=== PATIENT | male | born 1995 | race American Indian/Alaskan Native ===

== ENCOUNTER 2020-06-14 20:49 | Emergency (ER) | payer SELFPAY ==
--- NOTE | 2020-06-14 22:03 | Emergency Department Report ---
ED General Adult HPI - General Chief complaint: Fever Stated complaint: CHILLS Time Seen by Provider: 06/14/20 21:53 Source: patient Mode of arrival: Ambulatory Limitations: No Limitations - History of Present Illness Initial comments: 24-year-old -Nepalese male with no significant past medical history presents to the emergency department complaining of a myriad of vague symptoms which have been going on for the last 3 days. States that his symptoms started suddenly have been waxing and waning since the onset. Complaining of nasal congestion occasionally with occasional cough with mucus production. Also has been having some vague episodes of shortness of breath when lying down or having coughing spells. Also been having occasional aches pains and cramps and and chills. States that he has had a couple bouts of loose stools and some fever sensations but no documented fever. Radiation: non-radiation Consistency: constant Worsens with: none Associated Symptoms: malaise. denies: diaphoresis, rash, seizure, weakness Treatments Prior to Arrival: none - Related Data Previous Rx's Medication Instructions Recorded Last Taken Type Albuterol Mdi (or & Nicu Only) 1 puff IH Q4-6H PRN #1 inha 06/14/20 Unknown Rx [ProAir HFA Inhaler] Benzonatate [Tessalon Perles] 100 mg PO Q8HR #20 capsule 06/14/20 Unknown Rx Ketorolac [Toradol] 10 mg PO Q6H PRN #15 tablet 06/14/20 Unknown Rx ED Review of Systems ROS: Stated complaint: CHILLS Other details as noted in HPI Comment: All other systems reviewed and negative ED Past Medical Hx - Past Medical History Previous Medical History?: Yes Additional medical history: sickle cell trait - Surgical History Past Surgical History?: Yes Hx Appendectomy: Yes Additional Surgical History: hernia - Social History Smoking Status: Never Smoker Substance Use Type: None - Medications Home Medications: Home Medications Medication Instructions Recorded Confirmed Last Taken Type Albuterol Mdi (or & Nicu Only) 1 puff IH Q4-6H PRN #1 inha 06/14/20 Unknown Rx [ProAir HFA Inhaler] Benzonatate [Tessalon Perles] 100 mg PO Q8HR #20 capsule 06/14/20 Unknown Rx Ketorolac [Toradol] 10 mg PO Q6H PRN #15 tablet 06/14/20 Unknown Rx ED Physical Exam - General Limitations: No Limitations General appearance: alert, in no apparent distress - Head Head exam: Present: atraumatic, normocephalic - Eye Eye exam: Present: normal appearance - ENT ENT exam: Present: mucous membranes moist, other (Nasal congestion with clear drainage.) - Neck Neck exam: Present: normal inspection - Respiratory Respiratory exam: Present: normal lung sounds bilaterally. Absent: respiratory distress, chest wall tenderness - Cardiovascular Cardiovascular Exam: Present: regular rate, normal rhythm. Absent: systolic murmur, diastolic murmur, rubs, gallop - GI/Abdominal GI/Abdominal exam: Present: soft, normal bowel sounds - Rectal Rectal exam: Present: deferred - Extremities Exam Extremities exam: Present: normal inspection - Back Exam Back exam: Present: normal inspection. Absent: CVA tenderness (R), CVA tenderness (L) - Neurological Exam Neurological exam: Present: alert, oriented X3 - Psychiatric Psychiatric exam: Present: normal affect, normal mood - Skin Skin exam: Present: warm, dry, intact, normal color. Absent: rash ED Course Vital Signs 06/14/20 21:44 Temperature 97.9 F Pulse Rate 80 Respiratory 16 Rate Blood Pressure 131/77 O2 Sat by Pulse 97 Oximetry ED Medical Decision Making - Radiology Data Radiology results: report reviewed [facility] [address] [place] [address] XRay Report Signed Patient: YAIMA MAZARIEGOS MR#: [id number] : 1995 Acct:[id number] Age/Sex: 24 / M ADM Date: 06/14/20 Loc: ED Attending Dr: Ordering Physician: NOLAN PASTOR Date of Service: 06/14/20 Procedure(s): XR chest routine 2V Accession Number(s): [id number] cc: NOLAN PASTOR Fluoro Time In Minutes: CHEST 2 VIEWS INDICATION / CLINICAL INFORMATION: sob. COMPARISON: None available. FINDINGS: SUPPORT DEVICES: None. HEART / MEDIASTINUM: No significant abnormality. LUNGS / PLEURA: No significant pulmonary or pleural abnormality. No pneumothorax. ADDITIONAL FINDINGS: No significant additional findings. IMPRESSION: 1. No acute findings. Signer Name: Lyndon Hernandez MD Signed: 06/14/2020 10:51 PM Workstation Name: [id number] Transcribed By: TL Dictated By: Lyndon Hernandez MD Electronically Authenticated By: Lyndon Hernandez MD Signed Date/Time: 06/14/202250 DD/ 50 TD/TT: - Medical Decision Making This 24-year-old male patient presents with symptoms suspicious for likely viral upper respiratory tract infection. Differential includes bacterial pneumonia, sinusitis, allergic rhinitis, influenza, COVID-19, asthma, bronchitis. Do not suspect underlying Cardiopulmonary process. I considered but think unlikely dangerous cause of this patient symptoms to include acute coronary syndrome, CHF or COPD exacerbations, pneumonia, pneumothorax. Patient is nontoxic appearing and not in need of emergent medical intervention. Patient does not meet criteria for COVID-19. Doubt pneumonia, sepsis or other serious bacterial infection or acute emergent condition. Is otherwise well-appearing with acceptable vitals and reassuring physical examination and is safe to be discharged home. Patient lacks serious medical comorbidities that would require admission. Patient is nontoxic and although symptomatic otherwise safe to go home. Will provide strict return precautions and instructions on self isolation/quarantine and anticipatory guidance. Plan: Reassurance, reassessment, [id number] medications, discharge with PCP follow-up this patient presents with lower respiratory symptoms concerning for viral syndrome including flu. Critical care attestation.: If time is entered above; I have spent that time in minutes in the direct care of this critically ill patient, excluding procedure time. ED Disposition Clinical Impression: Viral syndrome, Cough Disposition: DC-01 TO HOME OR SELFCARE Is pt being admited?: No Does the pt Need Aspirin: No Condition: Stable Instructions: Viral Respiratory Infection, [id number], Cough, Adult, [id number], Cough, Adult, Cool Mist Vaporizer Prescriptions: Albuterol Mdi (or & Nicu Only) [ProAir HFA Inhaler] 1 puff IH Q4-6H PRN #1 inha PRN Reason: Cough Benzonatate [Tessalon Perles] 100 mg PO Q8HR #20 capsule Ketorolac [Toradol] 10 mg PO Q6H PRN #15 tablet PRN Reason: Pain Referrals: PRIMARY CARE, [Primary Care Provider] - 3-5 Days [facility] [Provider Group] - 3-5 Days
[2020-06-14 22:23] VITALS: BP 131/77
--- NOTE | 2020-06-14 22:56 | XRay Report ---
CHEST 2 VIEWS INDICATION / CLINICAL INFORMATION: sob. COMPARISON: None available. FINDINGS: SUPPORT DEVICES: None. HEART / MEDIASTINUM: No significant abnormality. LUNGS / PLEURA: No significant pulmonary or pleural abnormality. No pneumothorax. ADDITIONAL FINDINGS: No significant additional findings. IMPRESSION: 1. No acute findings. Signer Name: Lyndon Hernandez MD Signed: 06/14/2020 10:51 PM Workstation Name: [id number]
== END 2020-06-15 00:33 | disposition home or self-care (01) ==
LOC: ED 20:49
DX: B34.9 Viral infection, unspecified (principal); Z90.49 Acquired absence of other specified parts of digestive tract; Z98.890 Other specified postprocedural states; Z79.899 Other long term (current) drug therapy
CPT/HCPCS: 71046; 99283

== ENCOUNTER 2020-06-19 10:55 | Emergency (ER) | payer SELFPAY ==
[2020-06-19 11:01] VITALS: BP 117/61
--- NOTE | 2020-06-19 11:09 | Event Note ---
ED Screening Note Date of service: 06/19/20 Time: 11:05 ED Screening Note: This initial assessment/diagnostic orders/clinical plan/treatment(s) is/are subject to change based on patients health status, clinical progression and re- assessment by fellow clinical providers in the ED. Further treatment and workup at subsequent clinical providers discretion. Patient/guardian urged not to elope from the ED as their condition may be serious if not clinically assessed and managed. Initial orders include: 24-year-old male complaining of chest pain off and on x1 week associated with SOB. He is in no acute distress respirations easy and unlabored
[2020-06-19 11:50] LABS: Mean Corpuscular HGB Conc 33 % (32-34); Mean Corpuscular Volume 82 fl (84-94); Platelet Count 176 K/mm3 (140-440); Red Cell Distribution Width 12.7 % (13.2-15.2)
--- NOTE | 2020-06-19 11:55 | XRay Report ---
CHEST 2 VIEWS INDICATION / CLINICAL INFORMATION: chest pain. COMPARISON: 06/14/2020 FINDINGS: SUPPORT DEVICES: None. HEART / MEDIASTINUM: No significant abnormality. LUNGS / PLEURA: No significant pulmonary or pleural abnormality. No pneumothorax. ADDITIONAL FINDINGS: No significant additional findings. IMPRESSION: 1. No acute findings. No significant interval change since 06/14/2020. Signer Name: Chester Holt MD Signed: 06/19/2020 11:51 AM Workstation Name: [email or web address]
[2020-06-19 12:08] LABS: BUN/Creatinine Ratio 18; Blood Urea Nitrogen 14 mg/dL (9-20); Calcium 9.2 mg/dL (8.4-10.2); Hemolysis Index 5
--- NOTE | 2020-06-19 12:18 | Emergency Department Report ---
HPI - General Chief Complaint: Dyspnea/Respdistress Time Seen by Provider: 06/19/20 11:51 - HPI HPI: Room 43 The patient is a 24-year-old male present with a chief complaint of shortness of breath. The patient was seen in this emergency department 06/14/2020 for URI symptoms. Patient states after discharge began to feel better but continued to have some fatigue. Patient states he came to the emergency department today because this morning he developed shortness of breath and a dry throat. Patient missed a subjective fever and an occasional cough that is nonproductive. The patient states he tested negative for Covid 3 days ago. When asked how he is feeling currently the patient states he feels "okay." ED Past Medical Hx - Past Medical History Additional medical history: sickle cell trait - Surgical History Hx Appendectomy: Yes Additional Surgical History: hernia - Family History Family history: no significant - Social History Smoking Status: Never Smoker Substance Use Type: None (Denies illicit drug use) - Medications Home Medications: Home Medications Medication Instructions Recorded Confirmed Last Taken Type Albuterol Mdi (or & Nicu Only) 1 puff IH Q4-6H PRN #1 inha 06/14/20 Unknown Rx [ProAir HFA Inhaler] Benzonatate [Tessalon Perles] 100 mg PO Q8HR #20 capsule 06/14/20 Unknown Rx Ketorolac [Toradol] 10 mg PO Q6H PRN #15 tablet 06/14/20 Unknown Rx Azithromycin [Zithromax Z-JERONIMO] 0 mg PO DAILY #6 tab 06/19/20 Unknown Rx ED Review of Systems ROS: Stated complaint: ALLAN/CHEST FEELS HEAVY Other details as noted in HPI Constitutional: fever (Subjective) Eyes: denies: eye pain ENT: other (Dry throat) Respiratory: cough, shortness of breath Endocrine: no symptoms reported Gastrointestinal: nausea. denies: vomiting Genitourinary: denies: dysuria Musculoskeletal: denies: back pain Neurological: denies: headache Physical Exam - Physical Exam Vital Signs: Vital Signs 06/19/20 11:00 Temperature 97.8 F Pulse Rate 70 Respiratory 20 Rate Blood Pressure 117/61 O2 Sat by Pulse 99 Oximetry Physical Exam: GENERAL: The patient is well-developed well-nourished male sitting in chair not appearing to be in acute distress. [] HEENT: Normocephalic. Atraumatic. Extraocular motions are intact. Patient has moist mucous membranes. Oropharynx clear NECK: Supple. Trachea midline CHEST/LUNGS: Clear to auscultation. There is no respiratory distress noted. HEART/CARDIOVASCULAR: Regular. There is no tachycardia. There is no gallop rub or murmur. ABDOMEN: Abdomen is soft, nontender. Patient has normal bowel sounds. There is no abdominal distention. SKIN: There is no rash. There is no edema. There is no diaphoresis. NEURO: The patient is awake, alert, and oriented. The patient is cooperative. The patient has no focal neurologic deficits. The patient has normal speech MUSCULOSKELETAL: There is no evidence of acute injury. ED Course Vital Signs 06/19/20 11:00 Temperature 97.8 F Pulse Rate 70 Respiratory 20 Rate Blood Pressure 117/61 O2 Sat by Pulse 99 Oximetry - Reevaluation(s) Reevaluation #1: 06/19/20 13:37 2-minute walking SPO2 97% and above ED Medical Decision Making - Lab Data Result diagrams: 06/19/20 11:33 06/19/20 11:33 Laboratory Tests 06/19/20 06/19/20 06/19/20 11:33 11:33 11:33 WBC 5.5 RBC 5.50 H Hgb 15.0 Hct 45.0 MCV 82 L MCH 27 L MCHC 33 RDW 12.7 L Plt Count 176 D-Dimer Sodium 136 L Potassium 4.2 Chloride 102.1 Carbon Dioxide 25 Anion Gap 13 BUN 14 Creatinine 0.8 Estimated GFR > 60 BUN/Creatinine Ratio 18 Glucose 80 Calcium 9.2 Troponin T < 0.010 06/19/20 12:22 WBC RBC Hgb Hct MCV MCH MCHC RDW Plt Count D-Dimer 142.30 Sodium Potassium Chloride Carbon Dioxide Anion Gap BUN Creatinine Estimated GFR BUN/Creatinine Ratio Glucose Calcium Troponin T - EKG Data -: EKG Interpreted by Me EKG shows normal: sinus rhythm Rate: normal - EKG Data When compared to previous EKG there are: previous EKG unavailable Interpretation: other (No ischemic changes seen) - Radiology Data Radiology results: report reviewed (Chest x-ray), image reviewed (Chest x-ray) interpreted by me: Chest x-ray-no focal infiltrates, no pneumothorax. No foreign body seen [facility] [address] [place] [address] XRay Report Signed Patient: YAIMA MAZARIEGOS MR#: [id number] : 1995 Acct:[id number] Age/Sex: 24 / M ADM Date: 06/19/20 Loc: ED Attending Dr: Ordering Physician: LUIS A SANTIZO Date of Service: 06/19/20 Procedure(s): XR chest routine 2V Accession Number(s): [id number] cc: LUIS A SANTIZO Fluoro Time In Minutes: CHEST 2 VIEWS INDICATION / CLINICAL INFORMATION: chest pain. COMPARISON: 06/14/2020 FINDINGS: SUPPORT DEVICES: None. HEART / MEDIASTINUM: No significant abnormality. LUNGS / PLEURA: No significant pulmonary or pleural abnormality. No pneumothorax. ADDITIONAL FINDINGS: No significant additional findings. IMPRESSION: 1. No acute findings. No significant interval change since 06/14/2020. Signer Name: Chester Holt MD Signed: 06/19/2020 11:51 AM Workstation Name: [id number] Transcribed By: CH Dictated By: CHESTER HOLT Electronically Authenticated By: CHESTER HOLT Signed Date/Time: 06/19/20 1151 DD/ 1150 TD/TT: - Differential Diagnosis URI, PE, ACS, pneumonia Critical care attestation.: If time is entered above; I have spent that time in minutes in the direct care of this critically ill patient, excluding procedure time. ED Disposition Clinical Impression: URI (upper respiratory infection) Disposition: DC-01 TO HOME OR SELFCARE Is pt being admited?: No Does the pt Need Aspirin: No Condition: Stable Instructions: Upper Respiratory Infection, Adult Additional Instructions: Return to the emergency department should you develop worsening symptoms, inability to tolerate food or liquids, high fever or any other concerns Prescriptions: Azithromycin [Zithromax Z-JERONIMO] 0 mg PO DAILY #6 tab Referrals: PRIMARY CARE, [Primary Care Provider] - 3-5 Days Time of Disposition: 13:37
== END 2020-06-19 13:52 | disposition home or self-care (01) ==
LOC: ED 10:55
DX: J06.9 Acute upper respiratory infection, unspecified (principal); Z79.899 Other long term (current) drug therapy; Z90.49 Acquired absence of other specified parts of digestive tract; Z98.890 Other specified postprocedural states
CPT/HCPCS: 36415; 71046; 80048; 84484; 85027; 85379; 93005

== ENCOUNTER 2020-06-25 08:10 | Emergency (ER) | payer SELFPAY ==
[2020-06-25 08:15] VITALS: BP 146/87
--- NOTE | 2020-06-25 08:27 | Emergency Department Report ---
Chief Complaint: Medical Clearance Stated Complaint: MEDICATION CHANGE Time Seen by Provider: 06/25/20 08:23 - HPI History of Present Illness: This is a 24-year-old male with no prior medical history who was recently evaluated here 4 days ago presents here stating that he is having allergic reaction to the medication he was prescribed. Patient was given azithromycin which he completed, Toradol and inhaler. Patient states he took the Toradol and started to have experienced nausea. Patient states that at that time he took Claritin pill which made him feel a little better but he was unsure as to if he should continue taking the medication or not. Patient denies any new symptoms denies fever, chills, chest pain, shortness of breath patient states that he still having a little bit of intermittent coughing. - ROS Review of Systems: As noted in HPI - Exam Vital Signs: Vital Signs 06/25/20 08:12 Temperature 98 F Pulse Rate 67 Respiratory 20 Rate Blood Pressure 146/87 O2 Sat by Pulse 98 Oximetry Physical Exam: GENERAL: Alert and oriented x3, no apparent distress, Normal Gait, atraumatic. MOUTH:Mouth is well hydrated and without lesions. Tonsils nonerythematous or swollen, Uvula midline, Tongue not elevated. Mucous membranes are moist. Posterior pharynx clear, no exudate or lesions. Patent airways. NECK: Supple. Non edematous, No carotid bruits. No lymphadenopathy or thyromegaly. No C-spine tenderness LUNGS: Symetrical with respiration, No wheezing, no rales or crackles, CTAB. HEART: S1, S2 present, regular rate and rhythm without murmur, no rubs, no gallops. Non tender to palpation SKIN: Warm and dry, No lesions, No ulceration or induration present. MSE screening note: Focused history and physical exam performed. Due to findings the following was ordered: ED Medical Decision Making - Medical Decision Making 24-year-old male who presented in for medical clearance to medications he has been taking for the past week. Completed the antibiotics . I also discussed with him he will stop taking the Toradol as that may upset his stomach due to it being an NSAID. I discussed with patient to continue using the inhaler as needed. She was requesting for Covid testing site. Referral list given to patient. Patient is in no acute or respiratory distress throughout ED stay. ED Disposition for MSE Clinical Impression: Bronchitis Disposition: DC-01 TO HOME OR SELFCARE Is pt being admited?: No Does the pt Need Aspirin: No Condition: Stable Instructions: Chronic Bronchitis (ED), How to Use a Dry Powder Inhaler, [id number] Additional Instructions: Make sure to follow up with the primary care physician as discussed. Take all your medications as you've been prescribed. If you have any worsening symptoms or develop new symptoms please return to ED immediately. Referrals: [facility] [Outside] - 3-5 Days [facility] [Outside] - 3-5 Days Forms: Work/School Release Form(ED) Time of Disposition: 08:27
== END 2020-06-25 08:32 | disposition home or self-care (01) ==
LOC: ED 08:10
DX: J40 Bronchitis, not specified as acute or chronic (principal)
CPT/HCPCS: 99282

== ENCOUNTER 2020-06-27 22:31 | Emergency (ER) | payer SELFPAY ==
--- NOTE | 2020-06-27 22:56 | Event Note ---
ED Screening Note Date of service: 06/27/20 Time: 22:54 ED Screening Note: Patient is a 24-year-old -[place] male with no past medical history presents to the ED with complaint of acute onset persistent burning substernal chest pain for the last 2 days, worse in the last 6 hours especially with food and when he lays down. Patient also complains of shortness of breath, generalized weakness and mild dry cough for the last 1 week. Patient states that he had a COVID-19 diagnostic test performed today and the results are pending. Patient however states that he has not been closer to anyone that is known to have COVID-19 viral infection. Patient denies dizziness, syncope, palpitations, fever, chills, nausea and vomiting, abdominal pain, neck pain or headache. This initial assessment/diagnostic orders/clinical plan/treatment(s) is/are subject to change based on patients health status, clinical progression and re- assessment by fellow clinical providers in the ED. Further treatment and workup at subsequent clinical providers discretion. Patient/guardian urged not to elope from the ED as their condition may be serious if not clinically assessed and managed. Initial orders include: CBC, CMP, troponin, EKG, chest x-ray
--- NOTE | 2020-06-27 23:18 | XRay Report ---
CHEST 2 VIEWS INDICATION / CLINICAL INFORMATION: Chest pain. COMPARISON: 06/19/2020 FINDINGS: SUPPORT DEVICES: None. HEART / MEDIASTINUM: No significant abnormality. LUNGS / PLEURA: No significant pulmonary or pleural abnormality. No pneumothorax. ADDITIONAL FINDINGS: No significant additional findings. IMPRESSION: 1. No acute findings. Signer Name: Sid Pat MD Signed: 06/27/2020 11:13 PM Workstation Name: [id number]
[2020-06-27 23:33] LABS: Hematocrit 45.3 % (35.5-45.6); Hemoglobin 15.2 gm/dl (11.8-15.2); Mean Corpuscular HGB Conc 34 % (32-34); Mean Corpuscular Volume 81 fl (84-94); Platelet Count 209 K/mm3 (140-440)
[2020-06-27 23:56] LABS: Alanine Aminotransferase 26 units/L (7-56); Albumin 4.4 g/dL (3.9-5); Blood Urea Nitrogen 12 mg/dL (9-20); Calcium 9.3 mg/dL (8.4-10.2); Hemolysis Index 18
[2020-06-28 00:06] LABS: BUN/Creatinine Ratio 17
[2020-06-28] MEDS ORDERED: ONDANSETRON 4 MG ODT TAB PO ONE (00:25)
[2020-06-28] MEDS ORDERED: IBUPROFEN 400 MG TAB PO ONE (00:25)
--- NOTE | 2020-06-28 00:37 | Emergency Department Report ---
ED General Adult HPI - General Chief complaint: Chest Pain Stated complaint: BURNING IN CHEST/EYE WEIRD COLOR/N/V PUI?: No Time Seen by Provider: 06/28/20 00:07 Source: patient, RN notes reviewed, old records reviewed Mode of arrival: Ambulatory Limitations: No Limitations - History of Present Illness Initial comments: The patient was evaluated in the emergency department for symptoms described in the history of present illness. He/she was evaluated in the context of the global COVID-19 pandemic, which necessitated consideration that the patient might be at risk for infection with the virus that causes COVID-19. Institut ional protocols and algorithms that pertain to the evaluation of patients at risk for COVID-19 are in a state of rapid change based on information released by regulatory bodies including the CDC and federal and state organizations. These policies and algorithms were followed during the patient's care in the emergency department. Please note that these policies, procedures and recommendations changed on a rapid basis. This is a 24-year-old gentleman. He is not known to myself previously. He does not have a local primary care doctor. He does not currently take long-term prescription medications. Patient has been seen in this department few times in the past month for nonspecific cough/URI symptoms. He has been treated appropriately for this in the past. He presents to the ER today with a complaint of persistent intermittent cough, central and left-sided chest tightness, nasal congestion, and eye redness and ocular crusting which is painless, typically present in the morning. Symptoms present for around 2 weeks. No loss of taste or smell. No vomiting or diaphoresis. Positive nausea. No leg pain or leg swelling. No DVT or pulmonary embolism risk factors. No personal or family history of DVT, pulmonary embolism, or coronary artery disease that he is aware of. Patient does not wear contact lenses. He wears glasses. Unclear if he is taking the medications which were recently prescribed for him. Patient reports he had a Covid test recently, he is still waiting for the results. Patient reports he was going to follow-up with an outpatient primary care doctor that he was referred to, but was dissuaded from following up because of a $200 co-pay. His symptoms have been intermittent over the past few weeks, and do not have exacerbating or relieving factors that he is aware of. Currently, not having pain. Currently, positive mild nausea. Currently, no ocular symptoms. -: Gradual, days(s), week(s) Location: eyes, chest Quality: aching Consistency: intermittent Improves with: none Worsens with: none - Related Data Previous Rx's Medication Instructions Recorded Last Taken Type Albuterol Mdi (or & Nicu Only) 1 puff IH Q4-6H PRN #1 inha 06/14/20 Unknown Rx [ProAir HFA Inhaler] Benzonatate [Tessalon Perles] 100 mg PO Q8HR #20 capsule 06/14/20 Unknown Rx Ketorolac [Toradol] 10 mg PO Q6H PRN #15 tablet 06/14/20 Unknown Rx Allergies Allergy/AdvReac Type Severity Reaction Status Date / Time No Known Allergies Allergy Verified 06/25/20 08:11 ED Review of Systems ROS: Stated complaint: BURNING IN CHEST/EYE WEIRD COLOR/N/V Other details as noted in HPI Constitutional: denies: fever Eyes: eye discharge. denies: eye pain ENT: denies: epistaxis Respiratory: cough Cardiovascular: as per HPI, other (Chest tightness) Gastrointestinal: nausea. denies: abdominal pain Genitourinary: denies: dysuria Musculoskeletal: denies: back pain Neurological: denies: weakness Hematological/Lymphatic: denies: easy bleeding ED Past Medical Hx - Past Medical History Additional medical history: sickle cell trait - Surgical History Hx Appendectomy: Yes Additional Surgical History: hernia - Social History Smoking Status: Never Smoker Substance Use Type: None - Medications Home Medications: Home Medications Medication Instructions Recorded Confirmed Last Taken Type Albuterol Mdi (or & Nicu Only) 1 puff IH Q4-6H PRN #1 inha 06/14/20 Unknown Rx [ProAir HFA Inhaler] Benzonatate [Tessalon Perles] 100 mg PO Q8HR #20 capsule 06/14/20 Unknown Rx Ketorolac [Toradol] 10 mg PO Q6H PRN #15 tablet 06/14/20 Unknown Rx ED Physical Exam - General Limitations: No Limitations General appearance: alert, in no apparent distress - Head Head exam: Present: atraumatic, normocephalic - Eye Eye exam: Present: normal appearance, PERRL, EOMI, other (Visual acuity intact to finger counting, color perception, reading at a close distance). Absent: scleral icterus, conjunctival injection, nystagmus, periorbital swelling, periorbital tenderness - ENT ENT exam: Present: normal exam, normal orophraynx, mucous membranes moist, normal external ear exam - Neck Neck exam: Present: normal inspection, full ROM. Absent: tenderness, meningismus - Respiratory Respiratory exam: Present: normal lung sounds bilaterally. Absent: respiratory distress, wheezes, rales, rhonchi, stridor, chest wall tenderness, accessory muscle use, decreased breath sounds, prolonged expiratory - Cardiovascular Cardiovascular Exam: Present: regular rate, normal rhythm, normal heart sounds. Absent: bradycardia, tachycardia, irregular rhythm, systolic murmur, diastolic murmur, rubs, gallop - GI/Abdominal GI/Abdominal exam: Present: soft. Absent: distended, tenderness, guarding, rebound, rigid, pulsatile mass - Rectal Rectal exam: Present: deferred - Extremities Exam Extremities exam: Present: normal inspection, full ROM, other (2+ pulses noted in the bilateral upper and lower extremities. There is no palpable cord. negative Homans sign. Muscular compartments are soft. The pelvis is stable.). Absent: pedal edema, calf tenderness - Back Exam Back exam: Present: normal inspection, full ROM. Absent: tenderness, CVA tenderness (R), CVA tenderness (L), paraspinal tenderness, vertebral tenderness - Neurological Exam Neurological exam: Present: alert, normal gait, other (No facial droop. Tongue midline. Extraocular movements intact bilaterally. Facial sensation intact to light touch in V1, V2, V3 distribution bilaterally. 5 and a 5 strength in 4 extremities. Sensation intact to light touch in 4 extremities.). Absent: motor sensory deficit - Psychiatric Psychiatric exam: Present: normal affect, normal mood - Skin Skin exam: Present: warm, dry, intact, normal color. Absent: rash ED Course Vital Signs 06/27/20 22:40 Temperature 98.7 F Pulse Rate 80 Respiratory 18 Rate Blood Pressure 142/81 O2 Sat by Pulse 97 Oximetry ED Medical Decision Making - Lab Data Result diagrams: 06/27/20 23:10 06/27/20 23:10 Vital Signs 06/27/20 22:40 Temperature 98.7 F Pulse Rate 80 Respiratory 18 Rate Blood Pressure 142/81 O2 Sat by Pulse 97 Oximetry Lab Results 06/27/20 06/27/20 Range/Units 23:10 23:10 WBC 6.6 (4.5-11.0) K/mm3 RBC 5.60 H (3.65-5.03) M/mm3 Hgb 15.2 (11.8-15.2) gm/dl Hct 45.3 (35.5-45.6) % MCV 81 L (84-94) fl MCH 27 L (28-32) pg MCHC 34 (32-34) % RDW 13.0 L (13.2-15.2) % Plt Count 209 (140-440) K/mm3 Sodium 136 L (137-145) mmol/L Potassium 3.7 (3.6-5.0) mmol/L Chloride 101.2 (98-107) mmol/L Carbon Dioxide 24 (22-30) mmol/L Anion Gap 15 mmol/L BUN 12 (9-20) mg/dL Creatinine 0.7 L (0.8-1.3) mg/dL Estimated GFR > 60 ml/min BUN/Creatinine Ratio 17 % Glucose 99 (75-100) mg/dL Calcium 9.3 (8.4-10.2) mg/dL Total Bilirubin 0.20 (0.1-1.2) mg/dL AST 21 (5-40) units/L ALT 26 (7-56) units/L Alkaline Phosphatase 88 (35-129) units/L Troponin T < 0.010 (0.00-0.029) ng/mL Total Protein 7.0 (6.3-8.2) g/dL Albumin 4.4 (3.9-5) g/dL Albumin/Globulin Ratio 1.7 % - EKG Data -: EKG Interpreted by Tn EKG shows normal: sinus rhythm Rate: normal - EKG Data When compared to previous EKG there are: no significant change Interpretation: normal EKG, unchanged when compared t 06/28/20 00:40 The EKG today is unchanged from prior EKG from March 2020. Sinus rhythm, 74 bpm. Normal axis, normal intervals, borderline high left ventricular voltage, the EKG is not a STEMI - Radiology Data Radiology results: pending, report reviewed, image reviewed CHEST 2 VIEWS INDICATION / CLINICAL INFORMATION: Chest pain. COMPARISON: 06/19/2020 FINDINGS: SUPPORT DEVICES: None. HEART / MEDIASTINUM: No significant abnormality. LUNGS / PLEURA: No significant pulmonary or pleural abnormality. No pneumothorax. ADDITIONAL FINDINGS: No significant additional findings. IMPRESSION: 1. No acute findings. Signer Name: Sid Pat MD Signed: 06/27/2020 10:13 PM Workstation Name: [email or web address] - Medical Decision Making Differential diagnosis, including but not limited to: GERD, gastritis, cos tochondritis, COVID-19, viral syndrome, seasonal allergies Assessment and plan: 24-year-old gentleman, who is currently afebrile with reassuring vital signs, not currently tachycardic, tachypneic or hypoxic, who denies DVT and pulmonary embolism risk factors, low risk by Wells criteria, PERC negative, low risk for pulmonary embolism, low risk for major adverse cardiac event as per heart score, EKG unchanged from prior, troponin negative x1 in the context of weeks of symptoms, patient reports negative Covid test recently as an outpatient, and also had a Covid test within the past 24 hours. Patient's physical exam is benign and unremarkable, he does not desaturate with ambulation, he is not hypoxic, and he is clear lungs. Patient counseled that he does not likely have an emergent condition present at this time, and that he would be best suited to follow-up with an outpatient primary care doctor. In the unlikely event that this is Covid, he is not hypoxic, does not require admission for supportive care. Patient was given appropriate medication for similar symptoms a few days ago. He may continue that medication, and follow-up as an outpatient. No active vomiting at this time, visual examination and ocular examination, as well as the remainder of the physical examination unremarkable Critical care attestation.: If time is entered above; I have spent that time in minutes in the direct care of this critically ill patient, excluding procedure time. ED Disposition Clinical Impression: Viral syndrome, General medical exam Disposition: [id number] TO HOME OR SELFCARE Is pt being admited?: No Does the pt Need Aspirin: No Condition: Good Instructions: Viral Respiratory Infection, [id number] Additional Instructions: Please continue the medications that were recently prescribed for the patient. Please make certain to wash hands with soap and water frequently, thoroughly and often. We recommend follow-up with the primary care doctor within the next month. Please return to the emergency room right away with new pain, worsening pain, migration of pain, projectile vomiting, change in mental status, confusion, inability to tolerate liquid feeds, new, worsened or different symptoms not present on the initial emergency room evaluation. For the patient's convenience, we have listed a few of the local primary care clinics that he may follow-up with. Patient may obtain health insurance through his employer, by checking on [employer], or by seeking to purchase private health insurance on the market on his own. Referrals: RAY PACHECO MD [Staff Physician] - 3-5 Days [facility] [Provider Group] - 3-5 Days Heart Score - HEART Score History: Slightly suspicious EKG: Normal Age: < 45 Risk factors: No known risk factors Troponin: < normal limit HEART Score: 0 - Critical Actions Critical Actions: 0-3 pts:0.9-1.7%risk of adverse cardiac event.Candidate for discharge
[2020-06-28 01:16] VITALS: BP 138/83
[2020-06-28 04:58] LABS: Total Cells Counted 100
[2020-06-28 04:59] LABS: Anisocytosis Few; Platelet Estimate Cons
== END 2020-06-28 01:12 | disposition home or self-care (01) ==
LOC: ED 22:31
DX: B34.9 Viral infection, unspecified (principal); Z79.899 Other long term (current) drug therapy; Z90.49 Acquired absence of other specified parts of digestive tract; Z00.01 Encounter for general adult medical examination with abnormal findings
CPT/HCPCS: 36415; 71046; 80053; 84484; 85007; 85025; 93005; Q0162